=== PATIENT | male | born 2000 | race African-American/Black ===

== ENCOUNTER 2022-04-22 02:33 | Emergency (ER) | payer MEDICAID ==
[~2022-04-22] VITALS: Ht 165.1 cm; Wt 81.8 kg
[2022-04-22] MEDS ORDERED: IPRATROPIUM BROM 0.5 MG/2.5ML INH SOL NEB ONE (02:45)
[2022-04-22] MEDS ORDERED: ALBUTEROL SULF 2.5 MG/0.5ML(0.5%) NEB SOLN NEB ONE (02:45)
[2022-04-22 07:34] VITALS: BP 131/93
[2022-04-22] MEDS ORDERED: PRED20TA2 PO (07:49)
[2022-04-22] MEDS ORDERED: AZIT500T66 PO (07:49)
[2022-04-22] MEDS ORDERED: ALBU108A5 IN (07:49)
== END 2022-04-22 08:25 | disposition home or self-care (01) ==
LOC: ER 02:33
DX: J45.901 Unspecified asthma with (acute) exacerbation (principal); J03.90 Acute tonsillitis, unspecified; R07.89 Other chest pain; Z20.822 Contact with and (suspected) exposure to COVID-19
CPT/HCPCS: 36415; 71045; 87426; 87804; 94640; 99284; J7644